=== PATIENT | male | born 1975 | race Caucasian/White ===

== ENCOUNTER 2016-09-15 14:41 | Emergency (ER) | payer BC ==
[~2016-09-15] VITALS: Ht 182.9 cm; Wt 79.7 kg
[2016-09-15 15:18] LABS: HEMATOCRIT 37.9 % (38.0-50.0); MCH 29.3 PG (29.0-34.0); MCHC 34.3 G/DL (30.0-36.0); MCV 85.6 FL (86-99); MEAN PLAT.VOLUME 9.7 uM^3 (9.0-12.4); PLATELET COUNT 177 K/uL (156-360); RBC DIS.WIDTH-CV 12.7 % (11.8-14.6); RBC DIS.WIDTH-SD 39.5 % (39-53); RED BLOOD COUNT 4.43 M/uL (4.00-5.50); WHITE BLOOD COUNT 7.5 K/uL (4.1-10.2)
[2016-09-15 15:30] LABS: CHLORIDE 105 mEq/L (99-109); POTASSIUM 3.8 mEq/L (3.7-5.4); SODIUM 139 mEq/L (136-147)
[2016-09-15 15:32] LABS: GLUCOSE 102 mg/dL (70-99)
[2016-09-15 15:33] LABS: ANION GAP 9 MEQ/L (2-14)
[2016-09-15 15:34] LABS: TOTAL BILIRUBIN 0.8 mg/dL (0.0-1.0)
[2016-09-15 15:36] LABS: ALKALINE PHOSPHATASE 61 IU/L (3-129); GFR ESTIMATE (CALCULATED) > 59 mL/min/
[2016-09-15 15:37] LABS: UREA NITROGEN (BUN) 8 mg/dL (9-23)
[2016-09-15 15:39] LABS: LIPASE 44 U/L (1.0-51.0)
[2016-09-15 15:40] LABS: ADD MIUA? NO; BILIRUBIN NEGATIVE; BLOOD NEGATIVE; COLOR COLORLESS ((YELLOW)); GLUCOSE (STRIP) NEGATIVE; KETONES NEGATIVE; LEUKOCYTES NEGATIVE; NITRITE NEGATIVE; PROTEIN (STRIP) NEGATIVE; SPECIFIC GRAVITY 1.003 (1.000-1.030); UROBILINOGEN 0.2 MG/DL (0.2-1.0)
[2016-09-15] MEDS ORDERED: INDOCIN50 MG PO (16:16)
[2016-09-15] MEDS ORDERED: ZOFRAN ODT4 MG PO (16:16)
[2016-09-15] MEDS ORDERED: ULTRAM50 MG PO (16:16)
[2016-09-15 16:39] VITALS: BP 151/86
== END 2016-09-15 16:39 | disposition home or self-care (01) ==
LOC: EME 14:41
PROVIDERS: Physician Assistant
DX: N21.0 Calculus in bladder (principal); N20.0 Calculus of kidney
CPT/HCPCS: 74176; 80053; 81003; 83690; 85027; 99281; 99284; J1885